=== PATIENT | female | born 1990 | race Caucasian/White ===

== ENCOUNTER → 2016-05-12 | Outpatient (CLI) | payer OTHER ==
[~2016-05-12] MED LIST: AMOX500T2 PO
--- NOTE | 2016-05-12 13:29 | DI ---
Indication: ITS.REASON: R10.11 RUQ ABD PAIN PROCEDURE: US GALLBLADDER: Encounter: Initial Comparison: None Technique: Grayscale and color Doppler sonographic imaging of the right upper quadrant of the abdomen was performed. Findings: The liver measures 17.9 cm and demonstrates increased echogenicity suggesting steatosis with no focal mass seen. The gallbladder is normal. There is no wall thickening, pericholecystic fluid, sonographic Doran's sign or cholelithiasis. Both the intra and extrahepatic biliary system are of normal caliber with the common duct measuring 5 mm in dimension. Visualized portions of the head and body of the pancreas are unremarkable. The right kidney is present without collecting system dilatation. The right kidney measures 11.3 cm in length. Impression: 1. No cholelithiasis or other evidence of acute cholecystitis appreciated sonographically. 2. Mild hepatomegaly and steatosis. .
== END ==
LOC: IMA 12:52
PROVIDERS: ATTEND Family Medicine
DX: K76.0 Fatty (change of) liver, not elsewhere classified (principal); R10.11 Right upper quadrant pain

== ENCOUNTER → 2016-05-14 | Outpatient (CLI) | payer OTHER ==
--- NOTE | 2016-05-15 10:59 | DI ---
Indication: ITS.REASON: E28.2 POLYCYSTIC OVARIAN SYNDROME PROCEDURE: US PELVIC NON OB W/TRANS VAG: Encounter: Initial Comparison: None FINDINGS: Transvaginal and transabdominal pelvic imaging was performed. The uterus measures 4.2 cm in maximal dimension. The parenchyma is homogeneous without fibroids. The endometrial stripe is thickened and measures 15 mm in thickness. There is internal vascularity seen within the endometrium. Multiple the both in cysts. Both ovaries are identified. The right ovary measures 3.3 x 1.7 x 1.8 cm. The left ovary measures 2.7 x 1.8 x 1.8 cm. Both ovaries show an increased number of peripherally distributed follicles compatible with the provided history of PCOS. There are no abnormal adnexal masses detected. IMPRESSION: 1. Abnormally thickened endometrium with vascularity. Recommend consideration of endometrial sampling. This could be endometrial polyp, endometrial hyperplasia or less likely neoplasm in a patient of this age. Short-term follow-up ultrasound in 4-6 weeks may be helpful. 2. Polycystic ovaries. .
== END ==
LOC: IMA 16:49
PROVIDERS: ATTEND Family Medicine
DX: E28.2 Polycystic ovarian syndrome (principal); R93.8 Abnormal findings on diagnostic imaging of other specified body structures